=== PATIENT | male | born 1985 | race Caucasian/White ===

== ENCOUNTER 2016-11-26 10:47 | Emergency (ER) | payer SELFPAY ==
[2016-11-26] MEDS ORDERED: DEXAMETHASONE 4 MG TAB PO STA (11:43)
[2016-11-26] MEDS ORDERED: IPRATROPIUM-ALBUTEROL 3 ML NEB INHALATION STA (11:43)
--- NOTE | 2016-11-26 11:53 | ED ---
URI HPI - General Chief Complaint: Upper Respiratory Infection Stated Complaint: flu like symptoms Source: patient Mode of arrival: ambulatory Limitations: no limitations - History of Present Illness Initial Comments: 31-year-old male with no significant past medical history presented for evaluation of 2 days of sore throat, productive cough of green sputum, headache with coughing, and subjective fever. He states he was taking Sudafed but this provided no relief. Symptoms are worse at night and coughing seems to make the headache worse but nothing else is shown to be an exacerbating factor. He states that he works at [employer] and does not have insurance so he is not able to follow with primary care physician. He also states that he has had some bumps noted to the back of his throat and that his lymph nodes to his neck feel swollen. - Related Data Previous Rx's Medication Instructions Recorded Amoxicillin 500 mg PO Q12HR #20 cap 11/26/16 Allergies Allergy/AdvReac Type Severity Reaction Status Date / Time adhesive tape Allergy Unknown Verified 11/26/16 11:53 Review of Systems ROS Statement: Those systems with pertinent positive or pertinent negative responses have been documented in the HPI. ROS Other: All systems not noted in ROS Statement are negative. Constitutional: Reports: fever, chills. Denies: weakness, weight change Eyes: Denies: eye pain, eye discharge, vision change ENT: Denies: ear pain, throat pain, dental pain, hearing loss, epistaxis Respiratory: Reports: cough, dyspnea. Denies: wheezes, hemoptysis, stridor Cardiovascular: Denies: chest pain, palpitations, dyspnea on exertion, orthopnea Endocrine: Denies: fatigue, polydipsia, polyuria Gastrointestinal: Denies: abdominal pain, nausea, vomiting, diarrhea, constipation Genitourinary: Denies: urgency Musculoskeletal: Denies: as per HPI, back pain, joint swelling, arthralgia Skin: Denies: rash, change in color, pruritus Neurological: Reports: headache (With cough). Denies: confusion, abnormal gait Psychiatric: Denies: anxiety, depression Hematological/Lymphatic: Denies: easy bleeding, easy bruising Past Medical History Past Medical History: Asthma History of Any Multi-Drug Resistant Organisms: None Reported Past Surgical History: Orthopedic Surgery Additional Past Surgical History / Comment(s): sinus Past Psychological History: Anxiety, Bipolar, Depression Smoking Status: Current every day smoker Past Alcohol Use History: Occasional Past Drug Use History: None Reported General Exam Limitations: no limitations General appearance: alert, in no apparent distress Head exam: Present: atraumatic, normocephalic, normal inspection Eye exam: Present: normal appearance, PERRL, EOMI. Absent: scleral icterus, conjunctival injection, periorbital swelling ENT exam: Present: mucous membranes moist, TM's normal bilaterally, other ( Posterior oropharynx erythema with mild petechia) Neck exam: Present: tenderness, full ROM, lymphadenopathy Respiratory exam: Present: wheezes (Minimal bibasilar). Absent: respiratory distress, rhonchi, stridor, chest wall tenderness, accessory muscle use Cardiovascular Exam: Present: normal rhythm, tachycardia, normal heart sounds. Absent: systolic murmur, diastolic murmur GI/Abdominal exam: Present: soft, normal bowel sounds. Absent: distended, tenderness, guarding, rebound, rigid Rectal exam: Present: deferred Extremities exam: Present: normal inspection, full ROM, normal capillary refill. Absent: tenderness, pedal edema, joint swelling, calf tenderness Back exam: Present: normal inspection, full ROM Neurological exam: Present: alert, oriented X3, CN II-XII intact Psychiatric exam: Present: normal affect, normal mood Skin exam: Present: warm, dry, intact, normal color. Absent: rash Course Vital Signs 11/26/16 11/26/16 11/26/16 10:48 11:28 11:54 Temperature 99.0 F Pulse Rate 102 H 102 H Respiratory 20 16 16 Rate Blood Pressure 130/77 O2 Sat by Pulse 98 Oximetry 11/26/16 12:04 Temperature Pulse Rate 100 Respiratory Rate Blood Pressure O2 Sat by Pulse Oximetry Medical Decision Making - Medical Decision Making 31-year-old male presented for evaluation of URI symptoms of productive cough of green sputum, subjective fever, with associated sore throat , tender lymphadenopathy. Symptoms have been present for the last 2 days. On physical examination the patient does have minimal bibasilar wheezing, is coughing throughout the exam, and does have an erythematous posterior oropharynx with bilateral tender lymphadenopathy. Concern for URI versus pneumonia but given his sore throat with posterior oropharyngeal erythema will also consider strep. Pt has a centor score of 2 and will obtain rapid strep swab, cxr, and provide breathing treatment and steroids. There will not be an influenza swab taken as he is outside the treatment range and states that he would not be able to afford the treatment regardless. Rapid strep was negative and strep culture will be sent off. Chest x-ray shows no acute pulmonary process. She was reevaluated and stated he continues to have a mild headache. IM Toradol was provided. The patient was informed of results and that he would be discharged with instructions to follow-up with a primary care physician that would be provided to him. The patient states that he does not have insurance and that following up with her primary care physician will be likely. We'll provide an antibiotic that will cover for both the lymphangitis as well as strep throat as he is not likely to follow-up with her primary care physician. Symptoms likely represent an upper respiratory infection as there is no pneumonia seen on chest x-ray. He was further advised to return if his symptoms should worsen or persist. Didn't acknowledged an understanding of this information and he agreed with this plan of care. - Lab Data Lab Results 11/26/16 Range/Units 11:47 Group A Strep Rapid Negative (Negative) Disposition Clinical Impression: Upper respiratory infection, Lymphangitis Disposition: HOME SELF-CARE Condition: Stable Instructions: Upper Respiratory Infection (ED) Additional Instructions: Please use medication as discussed. Please follow up with family doctor if symptoms have not improved over the next two days. Please return to the emergency room if your symptoms increase or worsen or for any other concerns. Prescriptions: Amoxicillin 500 mg PO Q12HR #20 cap Time of Disposition: 13:08
--- NOTE | 2016-11-26 12:27 | XR ---
EXAMINATION TYPE: XR chest 2V DATE OF EXAM: 11/26/2016 12:17 PM COMPARISON: NONE HISTORY: Cough TECHNIQUE: Frontal and lateral views of the chest are obtained. FINDINGS: There is no focal air space opacity. No evidence for pnuemothorax.No pleural effusion. The cardiac silhouette size is within normal limits. The osseous structures are grossly intact. IMPRESSION: 1. No acute cardiopulmonary process.
[2016-11-26] MEDS ORDERED: KETOROLAC 30 MG/ML 1 ML VIAL IM STA ×2 (12:59→13:03)
[2016-11-26 13:07] VITALS: BP 128/62; PULSE 91; RESP 18; TEMP 99.1
== END 2016-11-26 13:27 | disposition home or self-care (01) ==
LOC: EC 10:47
DX: J06.9 Acute upper respiratory infection, unspecified (principal); I89.1 Lymphangitis; F17.200 Nicotine dependence, unspecified, uncomplicated; Z91.048 Other nonmedicinal substance allergy status
CPT/HCPCS: 96372 ×2; 99284 ×2; 94640; 87081; 87430; 71020; J8540; J1885

== ENCOUNTER 2017-01-22 16:55 | Emergency (ER) | payer OTHER ==
[2017-01-22] MEDS ORDERED: DICYCLOMINE 20 MG TAB PO STA (17:28)
[2017-01-22] MEDS ORDERED: SODIUM CHLORIDE 0.9% 1,000 ML IV STA (17:28)
[2017-01-22] MEDS ORDERED: SODIUM CHLORIDE 0.9% 500 ML IV STA (17:28)
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
[2017-01-22 18:02] LABS: Basophils % (A) 0 %; CH 31.4; CHCM 34.8; Eosinophils # (A) 0.1 k/uL (0-0.7); Eosinophils % (A) 1 %; HCT 44.6 % (39.0-53.0); HDW 2.35; HGB 15.3 gm/dL (13.0-17.5); Luc # (Auto) 0.07; Luc % (Auto) 1; Lymphocytes # (A) 1.1 k/uL (1.0-4.8); Lymphocytes % (A) 17 %; MCH 31.1 pg (25.0-35.0); MCHC 34.3 g/dL (31.0-37.0); MCV 90.6 fL (80.0-100.0); Mean Platelet Volume 6.8; Monocytes # (A) 0.3 k/uL (0-1.0); Monocytes % (A) 5 %; Neutrophils # (A) 4.9 k/uL (1.3-7.7); Neutrophils % (A) 75 %; RBC 4.92 m/uL (4.30-5.90); RDW 13.3 % (11.5-15.5); WBC 6.5 k/uL (3.8-10.6); WBC (Perox) 6.14
[2017-01-22 18:13] LABS: ALT 37 U/L (21-72); AST 23 U/L (17-59); Alkaline Phosphatase 78 U/L (38-126); Amylase 64 U/L (30-110); Anion Gap 6 mmol/L; Blood Urea Nitrogen 12 mg/dL (9-20); Calcium 8.8 mg/dL (8.4-10.2); Carbon Dioxide 26 mmol/L (22-30); Chloride 109 mmol/L (98-107); Glucose 95 mg/dL (74-99); Non-African American GFR(MDRD) >60 (>60 ml/min/1.73 sqM); Potassium 4.4 mmol/L (3.5-5.1); Sodium 141 mmol/L (137-145); Total Bilirubin 0.2 mg/dL (0.2-1.3); Total Protein 5.7 g/dL (6.3-8.2)
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
[2017-01-22 18:29] VITALS: BP 114/72; PULSE 69; RESP 15; TEMP 97.6
== END 2017-01-22 18:42 | disposition home or self-care (01) ==
LOC: EC 16:55
DX: A08.4 Viral intestinal infection, unspecified (principal); F17.200 Nicotine dependence, unspecified, uncomplicated; Z91.048 Other nonmedicinal substance allergy status
CPT/HCPCS: 36415; 74000; 80053; 82150; 83690; 85025; 96360; 99284

== ENCOUNTER 2017-04-30 19:02 | Emergency (ER) | payer OTHER ==
[2017-04-30 19:08] VITALS: TEMP 99
--- NOTE | 2017-04-30 19:22 | ED ---
General Adult HPI - General Chief complaint: Skin/Abscess/Foreign Body Stated complaint: FB IN THROAT Time Seen by Provider: 04/30/17 19:14 Source: patient, RN notes reviewed Mode of arrival: wheelchair Limitations: no limitations - History of Present Illness Initial comments: 32-year-old male presents with suspected steak in his esophagus. Patient reports a choking episode on a large piece of, then got lodged in his esophagus. He has had this happen in the past. He is complaining of intermittent squeezing substernal chest pain. He is unable to swallow secretions. He is having some vomiting with each attempt to swallow liquids. Patient denies abdominal pain. He has no significant past medical history. Denies any other ingestion. States it was "a large piece of steak" - Related Data Home Medications Medication Instructions Recorded Confirmed No Known Home Medications [No 04/30/17 04/30/17 Known Home Medications] Allergies Allergy/AdvReac Type Severity Reaction Status Date / Time adhesive tape Allergy Rash/Hives Verified 04/30/17 19:40 Review of Systems ROS Statement: Those systems with pertinent positive or pertinent negative responses have been documented in the HPI. ROS Other: All systems not noted in ROS Statement are negative. Past Medical History Past Medical History: Asthma History of Any Multi-Drug Resistant Organisms: None Reported Past Surgical History: Orthopedic Surgery Additional Past Surgical History / Comment(s): sinus Past Psychological History: Anxiety, Bipolar, Depression Smoking Status: Current every day smoker Past Alcohol Use History: Occasional Past Drug Use History: None Reported General Exam Limitations: no limitations General appearance: alert, in no apparent distress Head exam: Present: atraumatic, normocephalic Eye exam: Present: normal appearance, PERRL Neck exam: Present: normal inspection. Absent: tenderness, meningismus Respiratory exam: Present: normal lung sounds bilaterally. Absent: respiratory distress, stridor Cardiovascular Exam: Present: regular rate, normal rhythm GI/Abdominal exam: Present: soft. Absent: distended, tenderness Extremities exam: Present: normal inspection Back exam: Present: normal inspection, full ROM Neurological exam: Present: alert, oriented X3 Psychiatric exam: Present: normal affect, normal mood Skin exam: Present: warm, dry, intact. Absent: cyanosis, diaphoretic Course Vital Signs 04/30/17 04/30/17 19:05 21:44 Temperature 99.0 F Pulse Rate 70 69 Respiratory 18 16 Rate Blood Pressure 138/92 152/69 O2 Sat by Pulse 98 99 Oximetry Medical Decision Making - Medical Decision Making 32-year-old male with suspected steak caught in his esophagus. X-rays obtained , there is a foreign body in the proximal esophagus consistent with steak bolus. Patient was given Zofran and glucagon. He is unable to pass this steak on his own. I discussed the case with gastric neurology on-call Dr. Baeza, she recommends repeat glucagon dosing. He receives an additional 1 mg of glucagon. Patient is able to cough up a large piece of steak. He is feeling much better. He is able to tolerate small sips of water. Patient does have several episodes of vomiting, which she notes is ascitic taste inconsistent with gastric content. Repeat x-rays obtained, reduced food mass. There is no respiratory distress. Patient is tolerating liquids. He does not want stay in the emergency department. He will return with worsening symptoms. He will maintain a liquid diet for the next several days. No solid foods. He will return the emergency Department with worsening symptoms. He specifically told to return with chest pain, fever, or inability to tolerate liquids. He is given outpatient GI follow-up. Disposition Clinical Impression: Esophageal foreign body Disposition: HOME SELF-CARE Condition: Good Instructions: Esophageal Foreign Body (ED) Referrals: None,Stated [Primary Care Provider] - 1-2 days Laura Baeza MD [STAFF PHYSICIAN] - 1-2 days Time of Disposition: 22:03
[2017-04-30] MEDS ORDERED: ONDANSETRON 4 MG/2 ML VIAL IVP STA (19:50)
[2017-04-30] MEDS ORDERED: GLUCAGON 1 MG/ML VIAL IVP STA ×2 (19:50→21:13)
--- NOTE | 2017-04-30 20:01 | XR ---
EXAMINATION TYPE: Two-view soft tissue neck 2 views chest DATE OF EXAM: 04/30/2017 COMPARISON: 11/26/2016 HISTORY: 42-year-old male with pain, choked on a piece of steak FINDINGS: Neck: No subglottic airway narrowing. No retained radiopaque foreign body seen. No prevertebral soft tissue swelling. Normal epiglottis. The nasopharyngeal and oropharyngeal airway are patent. CHEST: The cardiomediastinal silhouette, aorta, and pulmonary vasculature are within normal limits. Mild per ibronchial cuffing is unchanged, possible chronic bronchitis/asthma. Otherwise, lungs and pleural spa evelio are clear. On the lateral view, there is some ovoid density projecting at the midsternal level. IMPRESSION: 1. Neck: Unremarkable soft tissues neck. 2. Chest: Chronic changes without acute cardiopulmonary process. 3. Chest: On the lateral view, there is a new ovoid density projecting behind the trachea in the uppe r third thorax. Summation shadow is most likely. However, given the patient's history, the possibilit y of material impacted in the esophagus can be correlated clinically.
[2017-04-30 21:46] VITALS: BP 152/69; PULSE 69; RESP 16
--- NOTE | 2017-04-30 21:50 | XR ---
EXAMINATION TYPE: XR chest 1V DATE OF EXAM: 04/30/2017 COMPARISON: NONE HISTORY: 32-year-old male reassess for foreign body, patient was able to bring up a piece of steak bu t still having excessive saliva. TECHNIQUE: Single frontal view of the chest is obtained. FINDINGS: On the lateral view, there is redemonstration of the retrotracheal density in the upper third thorax though it is smaller from prior exam. IMPRESSION: The density previously seen in the upper third thorax is smaller from prior exam. This could represen t summation artifact or some residual retained foreign body in the esophagus.
== END 2017-04-30 22:10 | disposition home or self-care (01) ==
LOC: EC 19:02
DX: T18.128A Food in esophagus causing other injury, initial encounter (principal); F17.200 Nicotine dependence, unspecified, uncomplicated; Z91.048 Other nonmedicinal substance allergy status
CPT/HCPCS: 99283 ×2; 96374 ×2; 96375 ×2; 96376 ×2; 70360; 71010; 71020; J1610; J2405

== ENCOUNTER 2017-06-06 18:29 | Emergency (ER) | payer OTHER ==
[2017-06-06] MEDS ORDERED: DICYCLOMINE 10 MG/ML 2 ML AMP IM STA (19:27)
[2017-06-06] MEDS ORDERED: ONDANSETRON 4 MG/2 ML VIAL IVP STA (19:27)
[2017-06-06] MEDS ORDERED: SODIUM CHLORIDE 0.9% 500 ML IV ONE (19:27)
[2017-06-06 20:02] LABS: Basophils % (A) 1 %; CH 30.1; CHCM 33.2; Eosinophils # (A) 0.1 k/uL (0-0.7); Eosinophils % (A) 2 %; HCT 45.5 % (39.0-53.0); HDW 2.28; HGB 14.9 gm/dL (13.0-17.5); Luc % (Auto) 2; Lymphocytes # (A) 2.7 k/uL (1.0-4.8); Lymphocytes % (A) 43 %; MCH 29.8 pg (25.0-35.0); MCHC 32.7 g/dL (31.0-37.0); MCV 91.2 fL (80.0-100.0); Mean Platelet Volume 7.5; Monocytes # (A) 0.3 k/uL (0-1.0); Monocytes % (A) 4 %; Neutrophils # (A) 3.1 k/uL (1.3-7.7); Neutrophils % (A) 49 %; RBC 4.99 m/uL (4.30-5.90); RDW 14.1 % (11.5-15.5); WBC 6.3 k/uL (3.8-10.6); WBC (Perox) 6.23
[2017-06-06 20:13] LABS: ALT 33 U/L (21-72); AST 22 U/L (17-59); Alkaline Phosphatase 87 U/L (38-126); Amylase 73 U/L (30-110); Anion Gap 10 mmol/L; Blood Urea Nitrogen 9 mg/dL (9-20); Calcium 9.5 mg/dL (8.4-10.2); Carbon Dioxide 24 mmol/L (22-30); Chloride 107 mmol/L (98-107); Glucose 87 mg/dL (74-99); Non-African American GFR(MDRD) >60 (>60 ml/min/1.73 sqM); Potassium 4.3 mmol/L (3.5-5.1); Sodium 141 mmol/L (137-145); Total Bilirubin 0.3 mg/dL (0.2-1.3); Total Protein 7.3 g/dL (6.3-8.2)
--- NOTE | 2017-06-06 20:22 | ED ---
Nausea/Vomiting/Diarrhea HPI - General Chief complaint: Nausea/Vomiting/Diarrhea Stated complaint: POSS FOOD POISONING Time Seen by Provider: 06/06/17 19:15 Source: patient Mode of arrival: ambulatory Limitations: no limitations - History of Present Illness Initial comments: 32-year-old male patient presents to the emergency department today with complaints of vomiting and diarrhea. Patient states that symptoms started around 11 AM. He states that he has vomited approximate 4 times. States that he has had generalized abdominal cramping with multiple episodes of diarrhea today. He is concerned for food poisoning. States that he ate at a local restaurant around 10 AM and symptoms started at 11. He denies any fever or chills with this. Denies any difficulty urinating. Denies any hematochezia, melena, or hematemesis. Patient denies any recent rash, shortness breath, chest pain, back pain, numbness, tingling, dizziness, weakness, hematuria, dysuria, urinary urgency, urinary frequency, headache, visual changes, or any other complaints. He denies any recent travel or sick contacts. - Related Data Previous Rx's Medication Instructions Recorded Ondansetron [Zofran ODT] 4 mg PO Q8HR PRN #10 tab 06/06/17 Allergies Allergy/AdvReac Type Severity Reaction Status Date / Time adhesive tape Allergy Rash/Hives Verified 06/06/17 19:16 Review of Systems ROS Statement: Those systems with pertinent positive or pertinent negative responses have been documented in the HPI. ROS Other: All systems not noted in ROS Statement are negative. Past Medical History Past Medical History: Asthma History of Any Multi-Drug Resistant Organisms: None Reported Past Surgical History: Orthopedic Surgery Additional Past Surgical History / Comment(s): sinus Past Psychological History: Anxiety, Bipolar, Depression Smoking Status: Current every day smoker Past Alcohol Use History: Occasional Past Drug Use History: None Reported General Exam Limitations: no limitations General appearance: alert, in no apparent distress, other (Social well-developed , well-nourished adult male patient in no acute distress. Vital signs upon presentation were temperature 98.1F, pulse 66, respirations 20, blood pressure 127/90, pulse ox 100% on room air.) Eye exam: Present: normal appearance, PERRL, EOMI. Absent: scleral icterus, conjunctival injection, periorbital swelling ENT exam: Present: normal exam, normal oropharynx, mucous membranes moist Respiratory exam: Present: normal lung sounds bilaterally. Absent: respiratory distress, wheezes, rales, rhonchi, stridor Cardiovascular Exam: Present: regular rate, normal rhythm, normal heart sounds. Absent: systolic murmur, diastolic murmur, rubs, gallop, clicks GI/Abdominal exam: Present: soft, normal bowel sounds. Absent: distended, tenderness, guarding, rebound, rigid Neurological exam: Present: alert, oriented X3, CN II-XII intact Psychiatric exam: Present: normal affect, normal mood Skin exam: Present: warm, dry, intact, normal color. Absent: rash Course Vital Signs 06/06/17 06/06/17 18:48 20:41 Temperature 98.1 F 97.8 F Pulse Rate 66 70 Respiratory 20 18 Rate Blood Pressure 127/90 114/74 O2 Sat by Pulse 100 99 Oximetry Medical Decision Making - Medical Decision Making 32-year-old male patient presented to the emergency department today for evaluation of vomiting and diarrhea. Physical examination was unremarkable. Labs reviewed and are unremarkable. Patient was rehydrated with normal saline, given nausea medication. Patient has not had any vomiting while in the department. States he is feeling better. He'll be discharged home with a prescription for Zofran. He is instructed to follow-up with his primary care physician for recheck in 1-2 days. He is instructed to return here immediately for any new, worsening, or concerning symptoms. He verbalizes understanding and agrees with this plan. - Lab Data Result diagrams: 06/06/17 19:52 06/06/17 19:52 Lab Results 06/06/17 06/06/17 Range/Units 19:52 19:52 WBC 6.3 (3.8-10.6) k/uL RBC 4.99 (4.30-5.90) m/uL Hgb 14.9 (13.0-17.5) gm/dL Hct 45.5 (39.0-53.0) % MCV 91.2 (80.0-100.0) fL MCH 29.8 (25.0-35.0) pg MCHC 32.7 (31.0-37.0) g/dL RDW 14.1 (11.5-15.5) % Plt Count 250 (150-450) k/uL Neutrophils % 49 % Lymphocytes % 43 % Monocytes % 4 % Eosinophils % 2 % Basophils % 1 % Neutrophils # 3.1 (1.3-7.7) k/uL Lymphocytes # 2.7 (1.0-4.8) k/uL Monocytes # 0.3 (0-1.0) k/uL Eosinophils # 0.1 (0-0.7) k/uL Basophils # 0.0 (0-0.2) k/uL Sodium 141 (137-145) mmol/L Potassium 4.3 (3.5-5.1) mmol/L Chloride 107 (98-107) mmol/L Carbon Dioxide 24 (22-30) mmol/L Anion Gap 10 mmol/L BUN 9 (9-20) mg/dL Creatinine 0.80 (0.66-1.25) mg/dL Est GFR (MDRD) Af Amer >60 (>60 ml/min/1.73 sqM) Est GFR (MDRD) Non-Af >60 (>60 ml/min/1.73 sqM) Glucose 87 (74-99) mg/dL Calcium 9.5 (8.4-10.2) mg/dL Total Bilirubin 0.3 (0.2-1.3) mg/dL AST 22 (17-59) U/L ALT 33 (21-72) U/L Alkaline Phosphatase 87 (38-126) U/L Total Protein 7.3 (6.3-8.2) g/dL Albumin 4.4 (3.5-5.0) g/dL Amylase 73 (30-110) U/L Lipase 116 (23-300) U/L Disposition Clinical Impression: Vomiting and diarrhea Disposition: HOME SELF-CARE Condition: Good Instructions: Acute Nausea and Vomiting (ED), Acute Diarrhea (ED) Additional Instructions: Increase fluids. Take medications as directed. Follow-up with your primary care physician for recheck in 1-2 days. Return here immediately for any new, worsening, or concerning symptoms. Prescriptions: Ondansetron [Zofran ODT] 4 mg PO Q8HR PRN #10 tab PRN Reason: Nausea Referrals: None,Stated [Primary Care Provider] - 1-2 days Time of Disposition: 20:39
[2017-06-06 20:43] VITALS: BP 114/74; PULSE 70; RESP 18
[2017-06-06 20:45] VITALS: TEMP 97.8
== END 2017-06-06 20:53 | disposition home or self-care (01) ==
LOC: EC 18:29
DX: R11.2 Nausea with vomiting, unspecified (principal); R19.7 Diarrhea, unspecified; R10.84 Generalized abdominal pain; F17.200 Nicotine dependence, unspecified, uncomplicated; Z91.048 Other nonmedicinal substance allergy status
CPT/HCPCS: 99284; 96374; 96361; 96372; 36415; 80053; 82150; 83690; 85025; J0500; J2405

== ENCOUNTER 2018-03-09 18:15 | Emergency (ER) | payer OTHER ==
[2018-03-09 18:22] VITALS: RESP 18
[2018-03-09] MEDS ORDERED: KETOROLAC 30 MG/ML 1 ML VIAL IVP STA (18:32)
[2018-03-09] MEDS ORDERED: methylPREDNISolone SOD SUCCI 125 MG/2 ML VIAL IV STA (18:32)
[2018-03-09] MEDS ORDERED: ORPHENADRINE 30 MG/ML 2 ML VIAL IVP STA (18:32)
--- NOTE | 2018-03-09 18:56 | ED ---
Back Pain HPI - General Chief Complaint: Back Pain/Injury Stated Complaint: back pain Time Seen by Provider: 03/09/18 18:20 Source: patient, EMS, RN notes reviewed, old records reviewed Limitations: physical limitation - History of Present Illness Initial Comments: This is a 32-year-old male presents emergency department today with onset of back pain and he was at work. Patient ports that he woke up this morning with an episode of back pain. It seems to worse with certain movements. Patient states that today he was pushing a eliot with meat and he twisted his back causing severe sharp pain. He arrives here via EMS because he was unable to get up from the floor. Patient reports that he has had no saddle anesthesias. He denies any urinary symptoms including hematuria or urinary frequency. - Related Data Previous Rx's Medication Instructions Recorded Cyclobenzaprine [Flexeril] 10 mg PO TID #12 tab 03/09/18 Ketorolac [Toradol] 10 mg PO Q6HR #12 tab 03/09/18 traMADol HCL [Ultram] 50 mg PO Q6HR PRN 3 Days #12 tab 03/09/18 Allergies Allergy/AdvReac Type Severity Reaction Status Date / Time adhesive tape Allergy Rash/Hives Verified 03/09/18 18:24 Review of Systems ROS Statement: Those systems with pertinent positive or pertinent negative responses have been documented in the HPI. ROS Other: All systems not noted in ROS Statement are negative. Past Medical History Past Medical History: Asthma History of Any Multi-Drug Resistant Organisms: None Reported Past Surgical History: Orthopedic Surgery Additional Past Surgical History / Comment(s): sinus Past Psychological History: Anxiety, Bipolar, Depression Smoking Status: Current every day smoker Past Alcohol Use History: Occasional Past Drug Use History: Marijuana General Exam - General Exam Comments Initial Comments: 42-year-old male. Alert and oriented. No distress. Limitations: physical limitation General appearance: alert, in no apparent distress Head exam: Present: atraumatic, normocephalic, normal inspection Eye exam: Present: normal appearance, PERRL, EOMI. Absent: scleral icterus, conjunctival injection, periorbital swelling ENT exam: Present: normal exam, mucous membranes moist Neck exam: Present: normal inspection Respiratory exam: Present: normal lung sounds bilaterally. Absent: respiratory distress, wheezes, rales, rhonchi, stridor Cardiovascular Exam: Present: regular rate, normal rhythm, normal heart sounds. Absent: systolic murmur, diastolic murmur, rubs, gallop, clicks GI/Abdominal exam: Present: soft Extremities exam: Present: normal inspection, full ROM, normal capillary refill. Absent: tenderness, pedal edema, joint swelling, calf tenderness Back exam: Present: normal inspection, muscle spasm, paraspinal tenderness ( Patient has left-sided mid thoracic paraspinal tenderness and muscle spasm.) Neurological exam: Present: alert, oriented X3, CN II-XII intact Psychiatric exam: Present: normal affect, normal mood Skin exam: Present: warm, dry, intact, normal color. Absent: rash Course Vital Signs 03/09/18 18:17 Temperature 97.8 F Pulse Rate 76 Respiratory 18 Rate Blood Pressure 128/70 O2 Sat by Pulse 98 Oximetry Medical Decision Making - Medical Decision Making 32-year-old male presents emergency room today when she went back pain. Patient reports that is worse with movement. This time thoracic spine x-rays negative for any acute process. He is tender over the thoracic spine and the paraspinal muscles. At this time Patient is treated with Toradol and Norflex and Solu-Medrol. He does report some relief of the pain. He does state it seems to be worse with certain movements. The same Patient UA is negative for any acute process. The we'll discharge the Patient must boxer steroids and short course of pain medication. Discussed PCP follow-up. Patient agrees treatment plan will comply. Return parameters were discussed. - Radiology Data Radiology results: report reviewed Chest x-ray and thoracic spine x-ray negative for any acute process. Disposition Clinical Impression: Thoracic back pain Disposition: HOME SELF-CARE Condition: Good Instructions: Muscle Spasm (ED) Additional Instructions: Patient advised to follow-up with primary care physician. Take the pain medication instructions as prescribed. Heat and ice to the back. Return to the emergency department if any alarming signs occur. Prescriptions: Cyclobenzaprine [Flexeril] 10 mg PO TID #12 tab Ketorolac [Toradol] 10 mg PO Q6HR #12 tab traMADol HCL [Ultram] 50 mg PO Q6HR PRN 3 Days #12 tab PRN Reason: Pain Is patient prescribed a controlled substance at d/c from ED?: No Referrals: Joi Amaya MD [Primary Care Provider] - 1-2 days Time of Disposition: 20:02
--- NOTE | 2018-03-09 19:57 | XR ---
PROCEDURE: XR thoracic spine 3V DATE AND TIME: 03/09/2018 7:34 PM CLINICAL INDICATION: [facility] Pain TECHNIQUE: Department protocol. COMPARISON: None FINDINGS: There is no fracture or malalignment. The soft tissues are unremarkable. IMPRESSION: NO ACUTE PROCESS.
[2018-03-09 20:24] LABS: Amorphous Sediment,Urine Rare /hpf; Appearance,Urine Clear (Clear); Bilirubin,Urine Negative (Negative); Blood,Urine Small (Negative); Color,Urine Yellow; Glucose,Urine (UA) Negative (Negative); Hyaline Casts,Urine 4 /lpf (0-2); Ketones,Urine Negative (Negative); Leukocyte Esterase,Urine Negative (Negative); Mucus,Urine Rare /hpf; Nitrite,Urine Negative (Negative); PH, Urine 5.5 (5.0-8.0); Protein,Urine Negative (Negative); RBC,Urine 5 /hpf (0-5); Specific Gravity,Urine 1.019 (1.001-1.035); Urobilinogen,Urine <2.0 mg/dL (<2.0); WBC,Urine 1 /hpf (0-5)
[2018-03-09 20:43] VITALS: BP 116/53; PULSE 60; TEMP 97.7
== END 2018-03-09 20:43 | disposition home or self-care (01) ==
LOC: EC 18:15
DX: M54.6 Pain in thoracic spine (principal); F17.200 Nicotine dependence, unspecified, uncomplicated; Z91.048 Other nonmedicinal substance allergy status
CPT/HCPCS: 81001; 72070; 99284; 96374; 96375 ×2; J2360; J2930; J1885

== ENCOUNTER → 2018-07-19 | Outpatient (CLI) | payer OTHER ==
--- NOTE | 2018-07-19 22:38 | MR ---
EXAMINATION TYPE: MR lumbar spine wo con DATE OF EXAM: 07/19/2018 COMPARISON: Lumbar spine x-ray May 12, 2015. HISTORY: Low back pain per order. TECHNIQUE: Multiplanar, multisequence imaging of the lumbar spine is performed without IV contrast. FINDINGS: Sagittal images of the lumbar spine show vertebral body heights and alignment to appear sat isfactory. There is disc desiccation at L4-L5 and L5-S1 levels. Disc space heights are maintained. Th ere is increased signal posteriorly consistent with annular tear L5-S1 level. No large posterior disc herniations are seen on sagittal images. The conus medullaris is normal in position and signal endin g T12-L1 disc space level. The bone marrow signal intensity is within normal limits. No significant spurring is seen. Axial images show the T12-L1, L1-L2, L2-L3, and L3-L4 levels all to appear within normal limits. Axial images at the L4-L5 level show mild broad disc bulge minimally effacing the anterior thecal sac with mild facet degenerative changes bilaterally causing mild to minimal bilateral anterior inferior neural foraminal narrowing. Axial images at the L5-S1 level shows central disc protrusion minimally effacing the anterior thecal sac and mild facet degenerative changes bilaterally. Bilateral neural foramina are patent. IMPRESSION: Some mild degenerative changes in the lower lumbar spine as detailed above.
--- NOTE | 2018-07-19 22:41 | MR ---
EXAMINATION TYPE: MR hip RT wo con DATE OF EXAM: 07/19/2018 COMPARISON: None HISTORY: Right Hip Pain, Recent injury to Rt Hip Standard multiplanar, multisequence MRI departmental protocol Multiplanar, multisequence images of the pelvis focusing on right hip were acquired. FINDINGS: Bone marrow signal intensity throughout the pelvis including right hip is maintained. No johnston spicious edema seen. No suspicious serpiginous low T1 signal is noted. Hip joints are symmetric and felt within normal limits. There are symmetric small presumed physiologi c hip joint effusions. Femoral head shapes are maintained bilaterally. No significant spurring is see n. The labrum appears grossly intact given limitations of nonarthrogram study. Increased fluid signal se en at level of greater trochanters bilaterally more prominent on the right. No suspicious groin herni as or adenopathy is seen. Muscle bulk bilateral thighs is symmetric and felt within normal limits. Visualized bowel shows no suspicious dilatation. Visualized bladder is within normal limits. Visualiz ed prostate is grossly unremarkable. No concerning pelvic fluid collection is seen. IMPRESSION: Mild to moderate right greater than left greater trochanteric bursitis.
== END | disposition home or self-care (01) ==
LOC: RADMRIMAIN 14:48
PROVIDERS: ATTEND Internal Medicine
DX: M47.816 Spondylosis without myelopathy or radiculopathy, lumbar region (principal); M70.62 Trochanteric bursitis, left hip; M70.61 Trochanteric bursitis, right hip
CPT/HCPCS: 72148

== ENCOUNTER 2018-09-16 00:24 | Emergency (ER) | payer OTHER ==
[2018-09-16 00:28] VITALS: BP 142/90; PULSE 91; RESP 16; TEMP 98.4
[2018-09-16] MEDS ORDERED: LIDOCAINE 1% INJ 10MG/ML (20 ML MDV) SQ ONE (01:43)
[2018-09-16] MEDS ORDERED: DIPH,PERTUS(ACELL)TETVAC-LF 0.5 ML VIAL IM ONE (02:37)
--- NOTE | 2018-09-16 02:57 | ED ---
General Adult HPI - General Chief complaint: Wound/Laceration Stated complaint: Hand Laceration Time Seen by Provider: 09/16/18 01:41 Source: patient, RN notes reviewed Mode of arrival: ambulatory Limitations: no limitations - History of Present Illness Initial comments: 33-year-old male presents to the emergency department for a chief of laceration of the right hand times one hour. Patient states he went to grab a kitchen knife off of the counter at his place of work when he accidentally cut his right hand. Patient is not sure what he cut this on. Patient denies any difficulty moving the fingers. Denies any other injuries. Patient states he has not up-to-date on tetanus. Patient has no other complaints at this time including shortness of breath, chest pain, abdominal pain, nausea or vomiting, headache, or visual changes. - Related Data Previous Rx's Medication Instructions Recorded Cyclobenzaprine [Flexeril] 10 mg PO TID #12 tab 03/09/18 Ketorolac [Toradol] 10 mg PO Q6HR #12 tab 03/09/18 traMADol HCL [Ultram] 50 mg PO Q6HR PRN 3 Days #12 tab 03/09/18 Allergies Allergy/AdvReac Type Severity Reaction Status Date / Time adhesive tape Allergy Rash/Hives Verified 09/16/18 00:28 Review of Systems ROS Statement: Those systems with pertinent positive or pertinent negative responses have been documented in the HPI. ROS Other: All systems not noted in ROS Statement are negative. Past Medical History Past Medical History: Asthma History of Any Multi-Drug Resistant Organisms: None Reported Past Surgical History: Orthopedic Surgery Additional Past Surgical History / Comment(s): sinus Past Psychological History: Anxiety, Bipolar, Depression Smoking Status: Current every day smoker Past Alcohol Use History: Occasional Past Drug Use History: Marijuana General Exam Limitations: no limitations General appearance: alert, in no apparent distress Head exam: Present: atraumatic, normocephalic, normal inspection Eye exam: Present: normal appearance, PERRL, EOMI. Absent: scleral icterus, conjunctival injection, periorbital swelling ENT exam: Present: normal exam, mucous membranes moist Neck exam: Present: normal inspection, full ROM. Absent: tenderness, meningismus, lymphadenopathy Respiratory exam: Present: normal lung sounds bilaterally. Absent: respiratory distress, wheezes, rales, rhonchi, stridor Cardiovascular Exam: Present: regular rate, normal rhythm, normal heart sounds. Absent: systolic murmur, diastolic murmur, rubs, gallop, clicks GI/Abdominal exam: Present: soft, normal bowel sounds. Absent: distended, tenderness, guarding, rebound, rigid Extremities exam: Present: full ROM (Full range of motion of right hand including all digits in the right hand), normal capillary refill (Capillary refill less than 2 seconds, radial pulse 2+ the right upper extremity), other ( Patient has a 2 cm laceration noted to the palmar aspect of the right hand over the fifth metacarpal. This is relatively superficial. No foreign bodies noted) Course Vital Signs 09/16/18 00:25 Temperature 98.4 F Pulse Rate 91 Respiratory 16 Rate Blood Pressure 142/90 O2 Sat by Pulse 96 Oximetry Procedures - Laceration Laceration #1 Consent Obtained: verbal consent Indication: laceration Site: hand Size (cm): 2 Description: linear Depth: simple, single layer Anesthetic Used: lidocaine 1% Anesthesia Technique: local infiltration Amount (mls): 2 Pre-repair: wound explored, irrigated extensively (Irrigated extensively with 2 L of sterile water and followed by pressure irrigation with saline) Type of Sutures: other (Ethilon) Size of Sutures: 5-0 Number of Sutures: 4 Technique: simple, interrupted Patient Tolerated Procedure: well, no complications Medical Decision Making - Medical Decision Making 33-year-old male presents to the emergency department for a chief complaint of laceration to the right palm over the fifth metacarpal area. Neurovascular intact. Full range of motion. Patient has a relatively superficial laceration. No foreign bodies noted. This was cleaned thoroughly. 4 sutures were applied. No complications Tetanus given. Educated them return precautions including those for infection. Educated to return in 7-10 days for suture removal AND answered. Disposition Clinical Impression: Laceration Disposition: HOME SELF-CARE Condition: Good Instructions (If sedation given, give patient instructions): Laceration (ED), Care For Your Stitches (ED) Additional Instructions: Please monitor for signs of infection such as spreading or streaking redness and return if these occur. Keep area clean. Follow-up with primary care in 1- 2 days for recheck. Return here to have sutures removed in 7-10 days. Return to the emergency department earlier if you have any worsening symptoms. Is patient prescribed a controlled substance at d/c from ED?: No Referrals: Joi Amaya MD [Primary Care Provider] - 1-2 days Time of Disposition: 02:56
== END 2018-09-16 03:10 | disposition home or self-care (01) ==
LOC: EC 00:24
DX: S61.411A Laceration without foreign body of right hand, initial encounter (principal); Z23 Encounter for immunization; F17.200 Nicotine dependence, unspecified, uncomplicated; Z91.048 Other nonmedicinal substance allergy status; W26.0XXA Contact with knife, initial encounter; Y92.000 Kitchen of unspecified non-institutional (private) residence as the place of occurrence of the external cause
CPT/HCPCS: 90715; 99282; 90471; 12001; J2001

== ENCOUNTER 2018-10-26 10:45 | Emergency (ER) | payer OTHER ==
[2018-10-26 10:59] VITALS: BP 120/76; PULSE 89; RESP 20; TEMP 97.6
[2018-10-26] MEDS ORDERED: LIDOCAINE 1% INJ 10MG/ML (20 ML MDV) SQ ONE (11:32)
--- NOTE | 2018-10-26 11:35 | ED ---
Wound/Laceration HPI - General Chief Complaint: Wound/Laceration Stated Complaint: finger lac Time Seen by Provider: 10/26/18 11:27 Source: patient, RN notes reviewed Mode of arrival: ambulatory Limitations: no limitations - History of Present Illness Initial Comments: 33-year-old male presents emergency Department chief complaint of laceration to his left hand index. Patient states that he was cutting tomatoes and states it slipped cutting his finger. Patient's tetanus up-to-date within last year. Patient denies any paresthesias. Patient has full range of motion. Patient states he did cover the wound which the bleeding has subsided. - Related Data Previous Rx's Medication Instructions Recorded Cyclobenzaprine [Flexeril] 10 mg PO TID #12 tab 03/09/18 Ketorolac [Toradol] 10 mg PO Q6HR #12 tab 03/09/18 traMADol HCL [Ultram] 50 mg PO Q6HR PRN 3 Days #12 tab 03/09/18 Allergies Allergy/AdvReac Type Severity Reaction Status Date / Time adhesive tape Allergy Rash/Hives Verified 10/26/18 10:58 Review of Systems ROS Statement: Those systems with pertinent positive or pertinent negative responses have been documented in the HPI. ROS Other: All systems not noted in ROS Statement are negative. Past Medical History Past Medical History: Asthma History of Any Multi-Drug Resistant Organisms: None Reported Past Surgical History: Orthopedic Surgery Additional Past Surgical History / Comment(s): sinus Past Psychological History: Anxiety, Bipolar, Depression Smoking Status: Current every day smoker Past Alcohol Use History: Occasional Past Drug Use History: Marijuana General Exam Limitations: no limitations General appearance: alert, in no apparent distress Head exam: Present: atraumatic, normocephalic, normal inspection Neck exam: Present: normal inspection. Absent: tenderness, meningismus, lymphadenopathy Respiratory exam: Present: normal lung sounds bilaterally. Absent: respiratory distress, wheezes, rales, rhonchi, stridor Cardiovascular Exam: Present: regular rate, normal rhythm, normal heart sounds. Absent: systolic murmur, diastolic murmur, rubs, gallop, clicks Extremities exam: Present: other (Left hand index finger there is 1 cm- laceration noted distal phalanx with no active bleeding, no nail involvement no tendon involvement) Skin exam: Present: warm, dry, intact, normal color. Absent: rash Course Vital Signs 10/26/18 10:56 Temperature 97.6 F Pulse Rate 89 Respiratory 20 Rate Blood Pressure 120/76 O2 Sat by Pulse 99 Oximetry Medical Decision Making - Medical Decision Making 33-year-old male presented from for laceration to his left index finger. This was closed using Ethilon sutures. Patient tolerated well tetanus is up-to-date. Disposition Clinical Impression: Finger laceration Disposition: HOME SELF-CARE Condition: Stable Instructions (If sedation given, give patient instructions): Care For Your Stitches (ED), Finger Laceration (ED) Additional Instructions: Have sutures removed in 10 days. Please return to the Emergency Department if symptoms worsen or any other concerns. Is patient prescribed a controlled substance at d/c from ED?: No Referrals: Joi Amaya MD [Primary Care Provider] - 1-2 days Time of Disposition: 11:54
== END 2018-10-26 12:10 | disposition home or self-care (01) ==
LOC: EC 10:45
DX: S61.211A Laceration without foreign body of left index finger without damage to nail, initial encounter (principal); F17.200 Nicotine dependence, unspecified, uncomplicated; Z91.048 Other nonmedicinal substance allergy status; W26.8XXA Contact with other sharp object(s), not elsewhere classified, initial encounter; Y93.89 Activity, other specified; Y99.0 Civilian activity done for income or pay
CPT/HCPCS: 99282; 12001; J2001

== ENCOUNTER 2018-11-18 17:28 | Emergency (ER) | payer OTHER ==
[2018-11-18 17:31] VITALS: BP 129/86; TEMP 98.3
[2018-11-18] MEDS ORDERED: methylPREDNISolone SOD SUCCI 125 MG/2 ML VIAL IM ONE (18:28)
[2018-11-18] MEDS ORDERED: cefTRIAXone 1,000 MG VIAL (IM USE) IM STA (18:28)
[2018-11-18] MEDS ORDERED: IPRATROPIUM-ALBUTEROL 3 ML NEB INHALATION STA (18:28)
--- NOTE | 2018-11-18 18:39 | ED ---
URI HPI - General Chief Complaint: Upper Respiratory Infection Stated Complaint: Congestion/chest pressure Time Seen by Provider: 11/18/18 17:45 Source: patient, RN notes reviewed, old records reviewed Mode of arrival: ambulatory Limitations: no limitations - History of Present Illness Initial Comments: 33-year-old male presents today for evaluation for cough, congestion for the past week. Patient reports that it seems like his chest and cough is worse at night. Patient states that he is a smoker. Patient reports history of sick contacts with pneumonia. Patient states that he's had fevers worsening at night. Patient denies any abdominal pain nausea or vomiting. - Related Data Previous Rx's Medication Instructions Recorded Azithromycin [Zithromax Z-pack] 250 mg PO DIRECTED #6 tab 11/18/18 methylPREDNISolone Dose Pack 4 mg PO DIRECTED #21 package 11/18/18 [Medrol Dose Pack] Allergies Allergy/AdvReac Type Severity Reaction Status Date / Time adhesive tape Allergy Rash/Hives Verified 11/18/18 17:31 Review of Systems ROS Statement: Those systems with pertinent positive or pertinent negative responses have been documented in the HPI. ROS Other: All systems not noted in ROS Statement are negative. Past Medical History Past Medical History: Asthma History of Any Multi-Drug Resistant Organisms: None Reported Past Surgical History: Orthopedic Surgery Additional Past Surgical History / Comment(s): sinus Past Psychological History: Anxiety, Bipolar, Depression Smoking Status: Current every day smoker Past Alcohol Use History: Occasional Past Drug Use History: Marijuana General Exam - General Exam Comments Initial Comments: 33-year-old male. Alert and oriented 3. Patient appears in no significant distress. Limitations: no limitations Head exam: Present: atraumatic, normocephalic, normal inspection Eye exam: Present: normal appearance, PERRL, EOMI. Absent: scleral icterus, conjunctival injection, periorbital swelling ENT exam: Present: normal exam, mucous membranes moist Neck exam: Present: normal inspection. Absent: tenderness, meningismus, lymphadenopathy Respiratory exam: Present: wheezes (Wheezing bilaterally.). Absent: normal lung sounds bilaterally, respiratory distress, rales, rhonchi, stridor Cardiovascular Exam: Present: regular rate, normal rhythm, normal heart sounds. Absent: systolic murmur, diastolic murmur, rubs, gallop, clicks GI/Abdominal exam: Present: soft, normal bowel sounds. Absent: distended, tenderness, guarding, rebound, rigid Extremities exam: Present: normal inspection, full ROM, normal capillary refill. Absent: tenderness, pedal edema, joint swelling, calf tenderness Back exam: Present: normal inspection Neurological exam: Present: alert, oriented X3, CN II-XII intact Psychiatric exam: Present: normal affect Skin exam: Present: warm, dry, intact, normal color. Absent: rash Course Vital Signs 11/18/18 11/18/18 11/18/18 17:29 17:59 18:37 Temperature 98.3 F Pulse Rate 80 77 Respiratory 18 18 20 Rate Blood Pressure 129/86 O2 Sat by Pulse 98 Oximetry 11/18/18 18:45 Temperature Pulse Rate 78 Respiratory 18 Rate Blood Pressure O2 Sat by Pulse Oximetry Medical Decision Making - Medical Decision Making Patient is a 33-year-old male process presented with cough congestion runny nose. He has wheezing on exam. Patient was given DuoNeb treatment and Solu- Medrol and Rocephin. At this time patient's chest is a was reviewed to be normal. Clinically Patient has bronchitis. We'll discharge the Patient with steroids and azithromycin. Discussed using inhaler and follow-up with PCP. - Radiology Data Radiology results: report reviewed Normal chest x-ray. Disposition Clinical Impression: Bronchitis Disposition: HOME SELF-CARE Condition: Good Instructions (If sedation given, give patient instructions): Acute Bronchitis (ED) Additional Instructions: Advised to alternate Motrin Tylenol. Take the medication as prescribed. Return to emergency department if any alarming signs or symptoms occur. Prescriptions: methylPREDNISolone Dose Pack [Medrol Dose Pack] 4 mg PO DIRECTED #21 package Azithromycin [Zithromax Z-pack] 250 mg PO DIRECTED #6 tab Is patient prescribed a controlled substance at d/c from ED?: No Referrals: Joi Amaya MD [Primary Care Provider] - 1-2 days Time of Disposition: 19:22
[2018-11-18 18:45] VITALS: PULSE 78; RESP 18
--- NOTE | 2018-11-18 19:14 | XR ---
EXAMINATION TYPE: XR chest 2V DATE OF EXAM: 11/18/2018 COMPARISON: 04/30/2017 HISTORY: Cough TECHNIQUE: Frontal and lateral views of the chest are obtained. FINDINGS: Heart and mediastinum are normal. Lungs are clear. Diaphragm is normal. Bony thorax appear s normal. IMPRESSION: Normal chest. No change.
== END 2018-11-18 19:31 | disposition home or self-care (01) ==
LOC: EC 17:28
DX: J40 Bronchitis, not specified as acute or chronic (principal); F17.200 Nicotine dependence, unspecified, uncomplicated; Z87.09 Personal history of other diseases of the respiratory system; Z91.048 Other nonmedicinal substance allergy status
CPT/HCPCS: 94640; 71046; 99285; 96372 ×2; J2930; J0696

== ENCOUNTER 2019-09-06 20:19 | Emergency (ER) | payer OTHER ==
[2019-09-06] MEDS ORDERED: SODIUM CHLORIDE 0.9% 1,000 ML IV STA (21:25)
[2019-09-06] MEDS ORDERED: PANTOPRAZOLE 40 MG/10 ML VIAL IVP STA (21:25)
[2019-09-06] MEDS ORDERED: ONDANSETRON 4 MG/2 ML VIAL IVP STA (21:25)
--- NOTE | 2019-09-06 21:32 | ED ---
Abdominal Pain HPI - General Chief Complaint: Abdominal Pain Stated Complaint: headache/abd pain Time Seen by Provider: 09/06/19 20:35 Source: patient Mode of arrival: ambulatory Limitations: no limitations - History of Present Illness Initial Comments: The patient is a 34-year-old male with no past medical history presents to emergency room with reported right upper quadrant abdominal pain. He states the symptoms have been present for the past several days. He describes it as a cramping epigastric pain which is worse after he eats fatty foods. He states that he had several episodes of nausea with vomiting 2 days ago. It was non- ileus, nonbloody vomiting. Also reports to non-melanotic stools. No hematochezia. Symptoms improved. Today he went to work and ate some cheese sticks. States that soon afterwards he was doubled over in pain. He felt as if he was given a vomit. Record fevers or chills. No recent travel or antibiotic use. Denies any sick contacts similar symptoms. No previous abdominal surgeries. Diarrhea has improved and is now having normal bowel movements. Denies any changes in his urination. No concerns for sexually transmitted infections. No ripping or tearing sensation to his back. He denies any chest pain or shortness of breath. No history of cardiac disease. There are no other alleviating, precipitating or modifying factors - Related Data Previous Rx's Medication Instructions Recorded Albuterol Inhaler [Ventolin Hfa 1 - 2 puff INHALATION RT-Q6H PRN 11/18/18 Inhaler] #1 inhaler Azithromycin [Zithromax Z-pack] 250 mg PO DIRECTED #6 tab 11/18/18 methylPREDNISolone Dose Pack 4 mg PO DIRECTED #21 package 11/18/18 [Medrol Dose Pack] Ondansetron Odt [Zofran Odt] 4 mg PO Q8HR PRN #15 tab 09/06/19 Allergies Allergy/AdvReac Type Severity Reaction Status Date / Time adhesive tape Allergy Rash/Hives Verified 09/06/19 20:35 Review of Systems ROS Statement: Those systems with pertinent positive or pertinent negative responses have been documented in the HPI. ROS Other: All systems not noted in ROS Statement are negative. Past Medical History Past Medical History: Asthma History of Any Multi-Drug Resistant Organisms: None Reported Past Surgical History: Orthopedic Surgery Additional Past Surgical History / Comment(s): sinus Past Psychological History: Anxiety, Bipolar, Depression Smoking Status: Current every day smoker Past Alcohol Use History: Occasional Past Drug Use History: Marijuana General Exam Limitations: no limitations General appearance: alert, in no apparent distress Head exam: Present: atraumatic, normocephalic, normal inspection Eye exam: Present: normal appearance, PERRL, EOMI. Absent: scleral icterus, conjunctival injection, periorbital swelling ENT exam: Present: normal exam, mucous membranes moist Neck exam: Present: normal inspection. Absent: tenderness, meningismus, lymphadenopathy Respiratory exam: Present: normal lung sounds bilaterally. Absent: respiratory distress, wheezes, rales, rhonchi, stridor Cardiovascular Exam: Present: regular rate, normal rhythm, normal heart sounds. Absent: systolic murmur, diastolic murmur, rubs, gallop, clicks GI/Abdominal exam: Present: soft, tenderness (RUQ), normal bowel sounds. Absent: distended, guarding, rebound, rigid Extremities exam: Present: normal inspection, full ROM, normal capillary refill. Absent: tenderness, pedal edema, joint swelling, calf tenderness Back exam: Present: normal inspection Neurological exam: Present: alert, oriented X3, CN II-XII intact Psychiatric exam: Present: normal affect, normal mood Skin exam: Present: warm, dry, intact, normal color. Absent: rash Course Vital Signs 09/06/19 09/06/19 09/06/19 20:33 22:35 23:00 Temperature 98.1 F 98.9 F Pulse Rate 99 60 65 Respiratory 20 20 18 Rate Blood Pressure 120/81 115/77 118/71 O2 Sat by Pulse 99 98 100 Oximetry Medical Decision Making - Medical Decision Making Upon arrival patient was placed into room 20. A thorough history and physical exam was performed. The patient is offered something for pain control however he refuses. He is offered Zofran which she does accept. Peripheral IV was established he is given 4 mg of Zofran as well as a liter bolus of normal saline. Laboratory studies were conducted which are unremarkable. Urinalysis shows trace blood with 14 red blood cells. Ultrasound of the gallbladder demonstrates no acute process. No gallstones or dilated ducts. I reevaluated the patient. He continues to have some pain. I did offer him pain medications however he refused. I did recommend a CT as I do not have the etiology of the patient's symptoms. The patient did refuse CT. He is of sound mind and capable of making his own decisions. He is lucid. And understands the risks of not proceeding with additional studies. This time the patient will be discharged home. I recommended that he follow-up with his primary care doctor for further evaluation. I did recommend a HIDA scan. The patient does not have a primary care physician. I did refer him to the [facility]. I also gave himself information for Dr. Kaur. If he has any new or worsening symptoms or has inability to proceed with medical treatment in the outpatient setting he can return to the emergency room. The patient was in agreement treatment plan and discharged home in stable condition - Lab Data Result diagrams: 09/06/19 21:50 09/06/19 21:50 Lab Results 09/06/19 09/06/19 09/06/19 Range/Units 21:50 21:50 21:50 WBC 7.7 (3.8-10.6) k/uL RBC 4.93 (4.30-5.90) m/uL Hgb 14.6 (13.0-17.5) gm/dL Hct 45.5 (39.0-53.0) % MCV 92.3 (80.0-100.0) fL MCH 29.5 (25.0-35.0) pg MCHC 32.0 (31.0-37.0) g/dL RDW 12.5 (11.5-15.5) % Plt Count 244 (150-450) k/uL Neutrophils % 55 % Lymphocytes % 36 % Monocytes % 4 % Eosinophils % 3 % Basophils % 0 % Neutrophils # 4.3 (1.3-7.7) k/uL Lymphocytes # 2.8 (1.0-4.8) k/uL Monocytes # 0.3 (0-1.0) k/uL Eosinophils # 0.2 (0-0.7) k/uL Basophils # 0.0 (0-0.2) k/uL Sodium 139 (137-145) mmol/L Potassium 4.2 (3.5-5.1) mmol/L Chloride 103 (98-107) mmol/L Carbon Dioxide 32 H (22-30) mmol/L Anion Gap 4 mmol/L BUN 17 (9-20) mg/dL Creatinine 0.91 (0.66-1.25) mg/dL Est GFR (CKD-EPI)AfAm >90 (>60 ml/min/1.73 sqM) Est GFR (CKD-EPI)NonAf >90 (>60 ml/min/1.73 sqM) Glucose 96 (74-99) mg/dL Plasma Lactic Acid Jitendra 1.3 (0.7-2.0) mmol/L Calcium 9.2 (8.4-10.2) mg/dL Total Bilirubin 0.3 (0.2-1.3) mg/dL AST 28 (17-59) U/L ALT 30 (4-49) U/L Alkaline Phosphatase 82 (38-126) U/L Total Protein 7.1 (6.3-8.2) g/dL Albumin 4.3 (3.5-5.0) g/dL Lipase 223 (23-300) U/L Urine Color Urine Appearance (Clear) Urine pH (5.0-8.0) Ur Specific Lithia (1.001-1.035) Urine Protein (Negative) Urine Glucose (UA) (Negative) Urine Ketones (Negative) Urine Blood (Negative) Urine Nitrite (Negative) Urine Bilirubin (Negative) Urine Urobilinogen (<2.0) mg/dL Ur Leukocyte Esterase (Negative) Urine RBC (0-5) /hpf Urine WBC (0-5) /hpf Urine Mucus (None) /hpf 09/06/19 Range/Units 23:00 WBC (3.8-10.6) k/uL RBC (4.30-5.90) m/uL Hgb (13.0-17.5) gm/dL Hct (39.0-53.0) % MCV (80.0-100.0) fL MCH (25.0-35.0) pg MCHC (31.0-37.0) g/dL RDW (11.5-15.5) % Plt Count (150-450) k/uL Neutrophils % % Lymphocytes % % Monocytes % % Eosinophils % % Basophils % % Neutrophils # (1.3-7.7) k/uL Lymphocytes # (1.0-4.8) k/uL Monocytes # (0-1.0) k/uL Eosinophils # (0-0.7) k/uL Basophils # (0-0.2) k/uL Sodium (137-145) mmol/L Potassium (3.5-5.1) mmol/L Chloride (98-107) mmol/L Carbon Dioxide (22-30) mmol/L Anion Gap mmol/L BUN (9-20) mg/dL Creatinine (0.66-1.25) mg/dL Est GFR (CKD-EPI)AfAm (>60 ml/min/1.73 sqM) Est GFR (CKD-EPI)NonAf (>60 ml/min/1.73 sqM) Glucose (74-99) mg/dL Plasma Lactic Acid Jitendra (0.7-2.0) mmol/L Calcium (8.4-10.2) mg/dL Total Bilirubin (0.2-1.3) mg/dL AST (17-59) U/L ALT (4-49) U/L Alkaline Phosphatase (38-126) U/L Total Protein (6.3-8.2) g/dL Albumin (3.5-5.0) g/dL Lipase (23-300) U/L Urine Color Yellow Urine Appearance Clear (Clear) Urine pH 6.5 (5.0-8.0) Ur Specific [place] 1.023 (1.001-1.035) Urine Protein Negative (Negative) Urine Glucose (UA) Negative (Negative) Urine Ketones Negative (Negative) Urine Blood Trace H (Negative) Urine Nitrite Negative (Negative) Urine Bilirubin Negative (Negative) Urine Urobilinogen 2.0 (<2.0) mg/dL Ur Leukocyte Esterase Negative (Negative) Urine RBC 14 H (0-5) /hpf Urine WBC 1 (0-5) /hpf Urine Mucus Rare H (None) /hpf - EKG Data EKG Comments: EKG demonstrates a sinus rhythm with a ventricular rate of 70. CA interval 132. QRS 96. QTC of 416. No acute ST segment elevations or depressions concerning for ischemic changes Disposition Clinical Impression: Epigastric pain Disposition: HOME SELF-CARE Condition: Stable Instructions (If sedation given, give patient instructions): Abdominal Pain (E D) Additional Instructions: Please follow-up with your primary care doctor in 2-4 days. I recommend a HIDA scan. Return to the emergency room for any new or worsening symptoms Prescriptions: Ondansetron Odt [Zofran Odt] 4 mg PO Q8HR PRN #15 tab PRN Reason: Nausea Is patient prescribed a controlled substance at d/c from ED?: No Referrals: Joi Amaya MD [Primary Care Provider] - 1-2 days [facility] [NON-STAFF] - 1-2 days Kavin Kaur MD [Medical Doctor] - 1-2 days Time of Disposition: 23:46
[2019-09-06 22:12] LABS: Basophils % (A) 0 %; Eosinophils # (A) 0.2 k/uL (0-0.7); Eosinophils % (A) 3 %; HCT 45.5 % (39.0-53.0); HGB 14.6 gm/dL (13.0-17.5); Lymphocytes # (A) 2.8 k/uL (1.0-4.8); Lymphocytes % (A) 36 %; MCH 29.5 pg (25.0-35.0); MCV 92.3 fL (80.0-100.0); Mean Platelet Volume 7.3; Monocytes # (A) 0.3 k/uL (0-1.0); Monocytes % (A) 4 %; Neutrophils # (A) 4.3 k/uL (1.3-7.7); Neutrophils % (A) 55 %; Platelet Count 244 k/uL (150-450); RBC 4.93 m/uL (4.30-5.90); RDW 12.5 % (11.5-15.5); WBC 7.7 k/uL (3.8-10.6)
[2019-09-06 22:21] LABS: ALT 30 U/L (4-49); AST 28 U/L (17-59); African American GFR (CKD) >90 (>60 ml/min/1.73 sqM); Albumin 4.3 g/dL (3.5-5.0); Alkaline Phosphatase 82 U/L (38-126); Anion Gap 4 mmol/L; Blood Urea Nitrogen 17 mg/dL (9-20); Calcium 9.2 mg/dL (8.4-10.2); Carbon Dioxide 32 mmol/L (22-30); Chloride 103 mmol/L (98-107); Glucose 96 mg/dL (74-99); Non-African American GFR(CKD) >90 (>60 ml/min/1.73 sqM); Potassium 4.2 mmol/L (3.5-5.1); Sodium 139 mmol/L (137-145); Total Bilirubin 0.3 mg/dL (0.2-1.3); Total Protein 7.1 g/dL (6.3-8.2)
[2019-09-06 22:53] VITALS: TEMP 98.9
--- NOTE | 2019-09-06 22:56 | US ---
EXAMINATION TYPE: US gallbladder DATE OF EXAM: 09/06/2019 COMPARISON: XR CLINICAL HISTORY: pain, vomiting. Pain and vomiting x 4 days. EXAM MEASUREMENTS: Liver Length: 13.8 cm Gallbladder Wall: 0.31 cm CBD: not seen Right Kidney: 11.8 x 5.5 x 4.9 cm Patient gassy. Pancreas: Limited, appears hyperechoic Liver: No abnormalities seen at this time. Limited visibility of left lobe. Gallbladder: Appears to be anechoic. Fold seen. Evidence for sonographic Gibbons's sign: No Right Kidney: No hydronephrosis or masses seen IMPRESSION: Negative exam. No gallstones or dilated ducts. No free fluid.
[2019-09-06 23:19] LABS: Appearance,Urine Clear (Clear); Bilirubin,Urine Negative (Negative); Blood,Urine Trace (Negative); Color,Urine Yellow; Glucose,Urine (UA) Negative (Negative); Ketones,Urine Negative (Negative); Leukocyte Esterase,Urine Negative (Negative); Mucus,Urine Rare /hpf; Nitrite,Urine Negative (Negative); PH, Urine 6.5 (5.0-8.0); Protein,Urine Negative (Negative); RBC,Urine 14 /hpf (0-5); Specific Gravity,Urine 1.023 (1.001-1.035); WBC,Urine 1 /hpf (0-5)
[2019-09-07 00:02] VITALS: BP 118/71; PULSE 65; RESP 18
== END 2019-09-07 00:31 | disposition home or self-care (01) ==
LOC: EC 20:19
DX: R10.13 Epigastric pain (principal); F17.200 Nicotine dependence, unspecified, uncomplicated; Z53.20 Procedure and treatment not carried out because of patient's decision for unspecified reasons; Z91.048 Other nonmedicinal substance allergy status
CPT/HCPCS: 99284; 96374; 96375; 36415; 93005; 80053; 83605; 83690; 85025; 81001; 76705; J2405; C9113

== ENCOUNTER 2021-03-06 15:41 | Emergency (ER) | payer BC ==
[2021-03-06 16:09] VITALS: TEMP 97.4
[2021-03-06] MEDS ORDERED: predniSONE 50 MG TAB PO STA (17:11)
[2021-03-06] MEDS ORDERED: KETOROLAC 15 MG/ML 1 ML VIAL IVP STA (17:11)
--- NOTE | 2021-03-06 17:13 | ED ---
Skin/Abscess/FB HPI - General Chief complaint: Skin/Abscess/Foreign Body Stated complaint: bee sting, allergic reaction Time Seen by Provider: 03/06/21 16:28 Source: family, EMS Mode of arrival: EMS Limitations: no limitations - History of Present Illness Initial comments: 35-year-old male patient presents to the emergency department today for evaluation of bee sting to the left upper arm. Patient states he was at work when he was stung by what he believes was a yellow jacket bee. States that his left forearm and hand went numb so he called 911. Patient was given Benadryl and Zofran in the ambulance. Patient currently reports no symptoms. States he has very mild discomfort around the sting site. Denies any lip swelling, tongue swelling, throat swelling, or trouble breathing. Denies abdominal pain. Denies any rash. - Related Data Previous Rx's Medication Instructions Recorded Albuterol Inhaler (Mhu) [Ventolin 1 - 2 puff INHALATION RT-Q6H PRN 11/18/18 Hfa Inhaler (Mhu)] #1 inhaler Azithromycin [Zithromax Z-pack (6 250 mg PO DIRECTED #6 tab 11/18/18 tabs)] methylPREDNISolone Dose Pack 4 mg PO DIRECTED #21 package 11/18/18 [Medrol Dose Pack] Ondansetron Odt [Zofran Odt] 4 mg PO Q8HR PRN #15 tab 09/06/19 predniSONE 50 mg PO DAILY #3 tab 03/06/21 Allergies Allergy/AdvReac Type Severity Reaction Status Date / Time adhesive tape Allergy Rash/Hives Verified 03/06/21 16:09 Review of Systems ROS Statement: Those systems with pertinent positive or pertinent negative responses have been documented in the HPI. ROS Other: All systems not noted in ROS Statement are negative. Past Medical History Past Medical History: Asthma History of Any Multi-Drug Resistant Organisms: None Reported Past Surgical History: Orthopedic Surgery Additional Past Surgical History / Comment(s): sinus Past Psychological History: Anxiety, Bipolar, Depression Past Alcohol Use History: Occasional Past Drug Use History: Marijuana General Exam Limitations: no limitations General appearance: alert, in no apparent distress, other (Physical well- developed, well-nourished adult male patient in no acute distress. Vital signs upon presentation are temperature 97.4F, pulse 65, respirations 18, blood pressure 104/70, pulse ox 97% on room air.) Respiratory exam: Present: normal lung sounds bilaterally. Absent: respiratory distress, wheezes, rales, rhonchi, stridor Cardiovascular Exam: Present: regular rate, normal rhythm, normal heart sounds. Absent: systolic murmur, diastolic murmur, rubs, gallop, clicks Extremities exam: Present: full ROM, normal capillary refill, other (There is a central sting site surrounded by mild swelling and erythema. Area is slightly tender. Skin is otherwise pink, warm, dry. Cap refill less than 3 seconds. Radial pulses 2+.). Absent: tenderness, pedal edema, joint swelling, calf tenderness Neurological exam: Present: alert, oriented X3, CN II-XII intact Psychiatric exam: Present: normal affect, normal mood Skin exam: Present: warm, dry, intact, normal color. Absent: rash Course Vital Signs 03/06/21 03/06/21 16:04 17:33 Temperature 97.4 F L Pulse Rate 65 58 L Respiratory 18 16 Rate Blood Pressure 104/70 113/80 O2 Sat by Pulse 97 98 Oximetry Medical Decision Making - Medical Decision Making 35-year-old male patient presented to the emergency department today for evaluation after being stung by a bee. Physical examination did reveal a small area of erythema with a central sting site to the left upper arm. Area is slightly tender. Initially was having some numbness to the arm states this has completely resolved. He is given a dose of Benadryl in the ambulance. Did give a dose of steroids here. He'll be discharged with a 3 day course of steroids. Instructed to follow-up with the primary care physician for recheck in 1-2 days. Return parameters were discussed in detail. He verbalizes understanding and agrees with this plan. I attending is Dr. Pearson. Disposition Clinical Impression: Bee sting, Arm paresthesia, left Disposition: HOME SELF-CARE Condition: Good Instructions (If sedation given, give patient instructions): Insect Bite or Sting (ED), Paresthesia (ED) Additional Instructions: Take medications as directed. Take Benadryl every 6 hours. Apply cool compresses over the site. Follow-up through primary care physician for recheck in 1-2 days. Return to the emergency department for any new, worsening, or concerning symptoms. Prescriptions: predniSONE 50 mg PO DAILY #3 tab Is patient prescribed a controlled substance at d/c from ED?: No Referrals: None,Stated [Primary Care Provider] - 1-2 days Time of Disposition: 17:13
[2021-03-06 17:34] VITALS: BP 113/80; PULSE 58; RESP 16
== END 2021-03-06 17:37 | disposition home or self-care (01) ==
LOC: EC 15:41
DX: T63.441A Toxic effect of venom of bees, accidental (unintentional), initial encounter (principal); J45.909 Unspecified asthma, uncomplicated; F31.9 Bipolar disorder, unspecified; F41.9 Anxiety disorder, unspecified; F12.90 Cannabis use, unspecified, uncomplicated; Z79.51 Long term (current) use of inhaled steroids
CPT/HCPCS: 99283; 96374; J1885; J7512

== ENCOUNTER 2024-10-18 15:25 | Emergency (ER) | payer OTHER ==
[2024-10-18] MEDS: ACET/COD 300 MG/30 MG STARTER PACK 6 TAB BTL PO STA (16:13)
[2024-10-18] MEDS: AMOXIC-POT CLAV 875-125MG 1 EACH TAB PO STA (16:13)
--- NOTE | 2024-10-18 16:15 | ED ---
General Adult HPI - General Chief complaint: Dental/Oral Stated complaint: Dental Pain Time Seen by Provider: 10/18/24 15:30 Source: patient, RN notes reviewed Mode of arrival: ambulatory Limitations: no limitations - History of Present Illness Initial comments: 39-year-old male presents to the emergency department for evaluation of dental pain. Patient reports that this been going on for months. He notes that over the past 2 to 3 days the pain is worsened. He notes multiple broken teeth. He was supposed to have them removed although he was quoted $11,000 to have the removed and he is unable to afford this. He denies any recent fever, chills. He does note that he took 2 doses of clindamycin that he had leftover at home. - Related Data Previous Rx's Medication Instructions Recorded Albuterol Inhaler [Ventolin Hfa 1 - 2 puff INHALATION RT-Q6H PRN 11/18/18 Inhaler] #1 inhaler Azithromycin [Zithromax Z-pack (6 250 mg PO DIRECTED #6 tab 11/18/18 tabs)] methylPREDNISolone Dose Pack 4 mg PO DIRECTED #21 package 11/18/18 [Medrol Dose Pack] Ondansetron Odt [Zofran Odt] 4 mg PO Q8HR PRN #15 tab 09/06/19 predniSONE 50 mg PO DAILY #3 tab 03/06/21 Amoxic-Pot Clav 875-125Mg 1 tab PO Q12HR 7 Days #14 tab 10/18/24 [Augmentin 875-125] Allergies Allergy/AdvReac Type Severity Reaction Status Date / Time adhesive tape Allergy Rash/Hives Verified 10/18/24 15:29 Review of Systems ROS Statement: Those systems with pertinent positive or pertinent negative responses have been documented in the HPI. ROS Other: All systems not noted in ROS Statement are negative. Past Medical History Past Medical History: Asthma History of Any Multi-Drug Resistant Organisms: None Reported Past Surgical History: Orthopedic Surgery Additional Past Surgical History / Comment(s): sinus Past Psychological History: Anxiety, Bipolar, Depression Smoking Status: Vaper Past Alcohol Use History: None Reported Past Drug Use History: Marijuana General Exam Limitations: no limitations General appearance: alert, in no apparent distress Head exam: Present: atraumatic, normocephalic, normal inspection Eye exam: Present: normal appearance, PERRL, EOMI. Absent: scleral icterus, conjunctival injection, periorbital swelling ENT exam: Present: other (Overall poor dentition with multiple caries and fractured teeth.) Respiratory exam: Present: normal lung sounds bilaterally. Absent: respiratory distress, wheezes, rales, rhonchi, stridor Cardiovascular Exam: Present: regular rate, normal rhythm, normal heart sounds. Absent: systolic murmur, diastolic murmur, rubs, gallop, clicks Neurological exam: Present: alert, oriented X3 Psychiatric exam: Present: normal affect, normal mood Skin exam: Present: warm, dry, intact, normal color. Absent: rash Course Vital Signs 10/18/24 10/18/24 15:27 16:35 Temperature 98.3 F 98.0 F Pulse Rate 86 80 Respiratory 18 20 Rate Blood Pressure 137/92 130/86 O2 Sat by Pulse 96 99 Oximetry Medical Decision Making - Medical Decision Making Was pt. sent in by a medical professional or institution (, PA, AERIAL PHOTOGRAPH INTERPRETER, urgent care, hospital, or [facility]...) When possible be specific @ -No Did you speak to anyone other than the patient for history (EMS, parent, family, police, friend...)? What history was obtained from this source @ -No Did you review nursing and triage notes (agree or disagree)? Why? @ -I reviewed and agree with nursing and triage notes Were old charts reviewed (outside hosp., previous admission, EMS record, old EKG, old radiological studies, urgent care reports/EKG's, [facility] records)? Report findings @ -No old charts were reviewed Differential Diagnosis (chest pain, altered mental status, abdominal pain women, abdominal pain men, vaginal bleeding, weakness, fever, dyspnea, syncope, headache, dizziness, GI bleed, back pain, seizure, CVA, palpatations, mental health, musculoskeletal)? @ -Dental infection, dental abscess, dental appliance issue, parotiditis, strep throat, this list is not all inclusive EKG interpreted by me (3pts min.). @ -None X-rays interpreted by me (1pt min.). @ -None done CT interpreted by me (1pt min.). @ -None done U/S interpreted by me (1pt. min.). @ -None done What testing was considered but not performed or refused? (CT, X-rays, U/S, labs)? Why? @ -None What meds were considered but not given or refused? Why? @ -None Did you discuss the management of the patient with other professionals (professionals i.e. , VON, AERIAL PHOTOGRAPH INTERPRETER, lab, RT, psych nurse, group social worker, mold sander, teacher, chief security and safety officer, assistant program manager)? Give summary @ -No Was smoking cessation discussed for >3mins.? @ -No Was critical care preformed (if so, how long)? @ -No Were there social determinants of health that impacted care today? How? (Homelessness, low income, unemployed, alcoholism, drug addiction, transportation, low edu. Level, literacy, decrease access to med. care, [facility], rehab)? @ -No Was there de-escalation of care discussed even if they declined (Discuss DNR or withdrawal of care, Hospice)? DNR status @ -No What co-morbidities impacted this encounter? (DM, HTN, Smoking, COPD, CAD, Cancer, CVA, ARF, Chemo, Hep., AIDS, mental health diagnosis, sleep apnea, morbid obesity)? @ -None Was patient admitted / discharged? Hospital course, mention meds given and route, prescriptions, significant lab abnormalities, going to OR and other pertinent info. @ -Discharge. Patient presented emergency department for evaluation of dental pain. On my evaluation patient has multiple dental caries and fractured teeth. There is no visible drainable abscess. He will be started on Augmentin. He is provided a starter pack for pain control. He will be discharged home advised follow-up to his dentist. He is understanding agreeable with this plan. Patient stable at time of discharge. Case discussed with Dr. Jackson. Undiagnosed new problem with uncertain prognosis? @ -No Drug Therapy requiring intensive monitoring for toxicity (Heparin, Nitro, Insulin, Cardizem)? @ -No Were any procedures done? @ -No Diagnosis/symptom? @ -Dental pain Acute, or Chronic, or Acute on Chronic? @ -Acute Uncomplicated (without systemic symptoms) or Complicated (systemic symptoms)? @ -Uncomplicated Side effects of treatment? @ -No Exacerbation, Progression, or Severe Exacerbation? @ -No Poses a threat to life or bodily function? How? (Chest pain, [place], [place], pneumonia, PE, COPD, DKA, ARF, appy, cholecystitis, CVA, Diverticulitis, Homicidal, Suicidal, threat to staff... and all critical care pts) @ -No Disposition Clinical Impression: Dental abscess Disposition: HOME SELF-CARE Condition: Stable Instructions (If sedation given, give patient instructions): Toothache (ED) Additional Instructions: Please steel pickler antibiotic and take to completion. Follow up with your dentist. Return to the emergency department for new or worsening symptoms. Prescriptions: Amoxic-Pot Clav 875-125Mg [Augmentin 875-125] 1 tab PO Q12HR 7 Days #14 tab Is patient prescribed a controlled substance at d/c from ED?: No Referrals: None,Stated [Primary Care Provider] - 1-2 days
[2024-10-18 16:36] VITALS: BP 130/86; PULSE 80; RESP 20; TEMP 98
== END 2024-10-18 16:36 | disposition home or self-care (01) ==
LOC: EC 15:25
DX: K04.7 Periapical abscess without sinus (principal); F17.290 Nicotine dependence, other tobacco product, uncomplicated; Z91.09 Other allergy status, other than to drugs and biological substances
CPT/HCPCS: 99282

== ENCOUNTER 2024-12-26 14:58 | Emergency (ER) | payer OTHER ==
[2024-12-26 15:07] VITALS: BP 118/81; PULSE 86; RESP 16; TEMP 97.7
--- NOTE | 2024-12-26 15:42 | ED ---
General Adult HPI - General Chief complaint: Upper Respiratory Infection Stated complaint: SOB Time Seen by Provider: 12/26/24 15:10 Source: patient, RN notes reviewed Mode of arrival: ambulatory Limitations: no limitations - History of Present Illness Initial comments: 39-year-old male with with a 30-year smoking history presents emergency department with cold and flulike symptoms over the past 6 days. Patient states that he has been experiencing intermittent body aches, chills, barking cough, rhinorrhea and congestion. Patient is presenting as he called off work today and states that he does not have health insurance. Denies fevers, reports chills. Denies abdominal pain, nausea, vomiting, chest pain or difficulty breathing. - Related Data Previous Rx's Medication Instructions Recorded Albuterol Inhaler [Ventolin Hfa 1 - 2 puff INHALATION RT-Q6H PRN 11/18/18 Inhaler] #1 inhaler Azithromycin [Zithromax Z-pack (6 250 mg PO DIRECTED #6 tab 11/18/18 tabs)] methylPREDNISolone Dose Pack 4 mg PO DIRECTED #21 package 11/18/18 [Medrol Dose Pack] Ondansetron Odt [Zofran Odt] 4 mg PO Q8HR PRN #15 tab 09/06/19 predniSONE 50 mg PO DAILY #3 tab 03/06/21 Amoxic-Pot Clav 875-125Mg 1 tab PO Q12HR 7 Days #14 tab 10/18/24 [Augmentin 875-125] Albuterol Inhaler [Ventolin Hfa 1 - 2 puff INHALATION Q6H PRN #1 12/26/24 Inhaler] each Azithromycin [Zithromax Z Pack] 1 tab PO DIRECTED #6 tab 12/26/24 Allergies Allergy/AdvReac Type Severity Reaction Status Date / Time adhesive tape Allergy Rash/Hives Verified 10/18/24 15:29 Review of Systems ROS Statement: Those systems with pertinent positive or pertinent negative responses have been documented in the HPI. ROS Other: All systems not noted in ROS Statement are negative. Past Medical History Past Medical History: Asthma History of Any Multi-Drug Resistant Organisms: None Reported Past Surgical History: Orthopedic Surgery Additional Past Surgical History / Comment(s): sinus Past Psychological History: Anxiety, Bipolar, Depression Smoking Status: Vaper Past Alcohol Use History: None Reported Past Drug Use History: Marijuana General Exam Limitations: no limitations General appearance: alert, in no apparent distress ENT exam: Present: normal exam, mucous membranes moist Neck exam: Present: normal inspection. Absent: tenderness, meningismus, lymphadenopathy Respiratory exam: Present: wheezes, rales. Absent: normal lung sounds bilateral ly, respiratory distress Cardiovascular Exam: Present: regular rate, normal rhythm, normal heart sounds. Absent: systolic murmur, diastolic murmur, rubs, gallop, clicks GI/Abdominal exam: Present: soft, normal bowel sounds. Absent: distended, tenderness, guarding, rebound, rigid Extremities exam: Present: normal inspection, full ROM, normal capillary refill. Absent: tenderness, pedal edema, joint swelling, calf tenderness Back exam: Present: normal inspection Skin exam: Present: warm, dry, intact, normal color. Absent: rash Course Vital Signs 12/26/24 15:06 Temperature 97.7 F Pulse Rate 86 Respiratory 16 Rate Blood Pressure 118/81 O2 Sat by Pulse 96 Oximetry Medical Decision Making - Medical Decision Making Was pt. sent in by a medical professional or institution ([facility], DIRECTOR OF CASEWORK, urgent care, hospital, or fdc...) When possible be specific @ -No Did you speak to anyone other than the patient for history (EMS, parent, family, police, friend...)? What history was obtained from this source @ -No Did you review nursing and triage notes (agree or disagree)? Why? @ -I reviewed and agree with nursing and triage notes Were old charts reviewed (outside hosp., previous admission, EMS record, old EKG, old radiological studies, urgent care reports/EKG's, fdc records)? Report findings @ -No old charts were reviewed Differential Diagnosis (chest pain, altered mental status, abdominal pain women, abdominal pain men, vaginal bleeding, weakness, fever, dyspnea, syncope, headache, dizziness, GI bleed, back pain, seizure, CVA, palpatations, mental health, musculoskeletal)? @ -COVID 19, RSV, influenza, pneumonia, acute bronchitis, URI, this list is not all inclusive EKG interpreted by me (3pts min.). @ -None X-rays interpreted by me (1pt min.). @ -Chest x-ray completed reveals no acute cardiopulmonary process CT interpreted by me (1pt min.). @ -None done U/S interpreted by me (1pt. min.). @ -None done What testing was considered but not performed or refused? (CT, X-rays, U/S, labs)? Why? @ -None What meds were considered but not given or refused? Why? @ -None Did you discuss the management of the patient with other professionals (professionals i.e. , PA, DIRECTOR OF CASEWORK, lab, RT, psych nurse, social service agency director, ice skating teacher, teacher, bank compliance officer, therapeutic case manager)? Give summary @ -No Was smoking cessation discussed for >3mins.? @ -No Was critical care preformed (if so, how long)? @ -No Were there social determinants of health that impacted care today? How? (Homelessness, low income, unemployed, alcoholism, drug addiction, transportation, low edu. Level, literacy, decrease access to med. care, senior care, rehab)? @ -No Was there de-escalation of care discussed even if they declined (Discuss DNR or withdrawal of care, Hospice)? DNR status @ -No What co-morbidities impacted this encounter? (DM, HTN, Smoking, COPD, CAD, Cancer, CVA, ARF, Chemo, Hep., AIDS, mental health diagnosis, sleep apnea, morbid obesity)? @ -None Was patient admitted / discharged? Hospital course, mention meds given and route, prescriptions, significant lab abnormalities, going to OR and other pertinent info. @ -Discharge. 39-year-old male presents emergency room with complaints of URI symptoms over the past week. Overall patient is well-appearing and initial vitals are stable. Patient has imitations lung sounds and auscultation with wheezes and rhonchi bilaterally. Chest x-ray is negative. Viral testing is negative. With concern for tracheobronchitis patient was treated with outpatient azithromycin and albuterol inhaler. Return parameters discussed. Case discussed with Dr. Arrington Undiagnosed new problem with uncertain prognosis? @ -No Drug Therapy requiring intensive monitoring for toxicity (Heparin, Nitro, Insulin, Cardizem)? @ -No Were any procedures done? @ -No Diagnosis/symptom? @ -Tracheobronchitis Acute, or Chronic, or Acute on Chronic? @ -Acute Uncomplicated (without systemic symptoms) or Complicated (systemic symptoms)? @ -Uncomplicated Side effects of treatment? @ -No Exacerbation, Progression, or Severe Exacerbation? @ -No Poses a threat to life or bodily function? How? (Chest pain, [place], [place], pneumonia, PE, COPD, DKA, ARF, appy, cholecystitis, CVA, Diverticulitis, Homicidal, Suicidal, threat to staff... and all critical care pts) @ -No - Lab Data Lab Results 12/26/24 Range/Units 15:21 Influenza Type A (PCR) Not Detected (Not Detectd) Influenza Type B (PCR) Not Detected (Not Detectd) RSV (PCR) Not Detected (Not Detectd) SARS-CoV-2 (PCR) Not Detected (Not Detectd) Disposition Clinical Impression: Tracheobronchitis Disposition: HOME SELF-CARE Condition: Stable Instructions (If sedation given, give patient instructions): Acute Bronchitis (ED) Additional Instructions: Please return to the Emergency Department if symptoms worsen or any other concerns. Prescriptions: Albuterol Inhaler [Ventolin Hfa Inhaler] 1 - 2 puff INHALATION Q6H PRN #1 each PRN Reason: Shortness Of Breath Azithromycin [Zithromax Z Pack] 1 tab PO DIRECTED #6 tab Is patient prescribed a controlled substance at d/c from ED?: No Referrals: None,Stated [Primary Care Provider] - 1-2 days Time of Disposition: 17:10
--- NOTE | 2024-12-26 15:47 | XR ---
EXAMINATION TYPE: XR chest 2V DATE OF EXAM: 12/26/2024 3:32 PM COMPARISON: 09/02/2024 CLINICAL INDICATION: Male, 39 years old with history of cough congestion sob, TECHNIQUE: XR chest 2V view(s) obtained. FINDINGS: The heart size is normal. The pulmonary vasculature is normal. The lungs are clear. IMPRESSION: 1. No acute pulmonary process. [facility], , 12/26/2024 3:44 PM
[2024-12-26 16:10] LABS: Influenza A Not Detected (Not Detectd); Influenza B Not Detected (Not Detectd); RSV Not Detected (Not Detectd)
== END 2024-12-26 17:32 | disposition home or self-care (01) ==
LOC: EC 14:58
DX: J40 Bronchitis, not specified as acute or chronic (principal); F17.290 Nicotine dependence, other tobacco product, uncomplicated; Z91.09 Other allergy status, other than to drugs and biological substances
CPT/HCPCS: 71046; 87636; 99284

== ENCOUNTER 2025-01-23 00:44 | Emergency (ER) | payer SELFPAY ==
--- NOTE | 2025-01-23 01:41 | XR ---
EXAM: XR Chest, 2 Views CLINICAL HISTORY: ITS.REASON XR Reason: SOB TECHNIQUE: Frontal and lateral views of the chest. COMPARISON: No relevant prior studies available. FINDINGS: Lungs: Unremarkable. No consolidation. Pleural space: Unremarkable. No pneumothorax. Heart: Unremarkable. No cardiomegaly. Mediastinum: Unremarkable. Bones/joints: Unremarkable. IMPRESSION: No consolidation.
[2025-01-23 01:42] LABS: RSV Not Detected (Not Detectd)
--- NOTE | 2025-01-23 01:56 | ED ---
General Adult HPI - General Chief complaint: Shortness of Breath Stated complaint: difficulty breathing Time Seen by Provider: 01/23/25 01:00 Source: patient, RN notes reviewed Mode of arrival: ambulatory Limitations: no limitations - History of Present Illness Initial comments: 39-year-old male presents emergency department complaint of cough congestion headaches. Patient states last several days. Patient states that he has had sore throat, productive cough. Patient dates he has a history of asthma states he is a daily smoker. Patient denies any ear pain denies any abdominal pain. Patient states he has thick sputum. Patient denies any [id number] cough or cold meds. - Related Data Previous Rx's Medication Instructions Recorded Albuterol Inhaler [Ventolin Hfa 1 - 2 puff INHALATION RT-Q6H PRN 11/18/18 Inhaler] #1 inhaler Azithromycin [Zithromax Z-pack (6 250 mg PO DIRECTED #6 tab 11/18/18 tabs)] methylPREDNISolone Dose Pack 4 mg PO DIRECTED #21 package 11/18/18 [Medrol Dose Pack] Ondansetron Odt [Zofran Odt] 4 mg PO Q8HR PRN #15 tab 09/06/19 predniSONE 50 mg PO DAILY #3 tab 03/06/21 Amoxic-Pot Clav 875-125Mg 1 tab PO Q12HR 7 Days #14 tab 10/18/24 [Augmentin 875-125] Albuterol Inhaler [Ventolin Hfa 1 - 2 puff INHALATION Q6H PRN #1 12/26/24 Inhaler] each Azithromycin [Zithromax Z Pack] 1 tab PO DIRECTED #6 tab 12/26/24 Amoxic-Pot Clav 875-125Mg 1 tab PO Q12HR #20 tab 01/23/25 [Augmentin 875-125] predniSONE 50 mg PO DAILY #5 tab 01/23/25 Allergies Allergy/AdvReac Type Severity Reaction Status Date / Time adhesive tape Allergy Rash/Hives Verified 10/18/24 15:29 Review of Systems ROS Statement: Those systems with pertinent positive or pertinent negative responses have been documented in the HPI. ROS Other: All systems not noted in ROS Statement are negative. Past Medical History Past Medical History: Asthma History of Any Multi-Drug Resistant Organisms: None Reported Past Surgical History: Orthopedic Surgery Additional Past Surgical History / Comment(s): sinus Past Psychological History: Anxiety, Bipolar, Depression Smoking Status: Former smoker Past Alcohol Use History: None Reported Past Drug Use History: Marijuana General Exam Limitations: no limitations General appearance: alert, in no apparent distress Head exam: Present: atraumatic, normocephalic, normal inspection ENT exam: Present: normal exam, mucous membranes moist, TM's normal bilaterally Neck exam: Present: normal inspection. Absent: tenderness, meningismus, lymphadenopathy Respiratory exam: Present: wheezes. Absent: normal lung sounds bilaterally, respiratory distress, rales, rhonchi, stridor Cardiovascular Exam: Present: normal rhythm, tachycardia, normal heart sounds. Absent: systolic murmur, diastolic murmur, rubs, gallop, clicks Course Vital Signs 01/23/25 01/23/25 00:48 01:26 Temperature 100.3 F H Pulse Rate 110 H Respiratory 18 24 Rate Blood Pressure 125/87 O2 Sat by Pulse 99 Oximetry Medical Decision Making - Medical Decision Making Was pt. sent in by a medical professional or institution (, PA, WIND FARM SUPPORT SPECIALIST, urgent care, hospital, or correction...) When possible be specific @ -No Did you speak to anyone other than the patient for history (EMS, parent, family, police, friend...)? What history was obtained from this source @ -No Did you review nursing and triage notes (agree or disagree)? Why? @ -I reviewed and agree with nursing and triage notes Were old charts reviewed (outside hosp., previous admission, EMS record, old EKG, old radiological studies, urgent care reports/EKG's, correction records)? Report findings @ -No old charts were reviewed Differential Diagnosis (chest pain, altered mental status, abdominal pain women, abdominal pain men, vaginal bleeding, weakness, fever, dyspnea, syncope, headache, dizziness, GI bleed, back pain, seizure, CVA, palpatations, mental health, musculoskeletal)? @ -COVID 19, RSV, influenza, pneumonia, acute bronchitis, URI, this list is not all inclusive EKG interpreted by me (3pts min.). @ -none X-rays interpreted by me (1pt min.). @ -[Chest x-ray shows no acute cardiopulmonary process. CT interpreted by me (1pt min.). @ -None done U/S interpreted by me (1pt. min.). @ -None done What testing was considered but not performed or refused? (CT, X-rays, U/S, labs)? Why? @ -None What meds were considered but not given or refused? Why? @ -None Did you discuss the management of the patient with other professionals (professionals i.e. , PA, WIND FARM SUPPORT SPECIALIST, lab, RT, psych nurse, oncology social work, glass wool blanket machine feeder, teacher, county records management officer, pillowcase turner)? Give summary @ -No Was smoking cessation discussed for >3mins.? @ -No Was critical care preformed (if so, how long)? @ -No Were there social determinants of health that impacted care today? How? (Homelessness, low income, unemployed, alcoholism, drug addiction, transportation, low edu. Level, literacy, decrease access to med. care, halfway, rehab)? @ -No Was there de-escalation of care discussed even if they declined (Discuss DNR or withdrawal of care, Hospice)? DNR status @ -No What co-morbidities impacted this encounter? (DM, HTN, Smoking, COPD, CAD, Cancer, CVA, ARF, Chemo, Hep., AIDS, mental health diagnosis, sleep apnea, morbid obesity)? @ -None Was patient admitted / discharged? Hospital course, mention meds given and route, prescriptions, significant lab abnormalities, going to OR and other pertinent info. @ -Discharge patient presented for fever cough congestion. Patient Cepheid, strep negative chest x-ray does not show any significant consolidation. Patient does have notable wheezing was given DuoNeb treatment. Patient has acute tracheobronchitis with bronchospasm. Patient discharged on antibiotics, steroids return for as discussed. Undiagnosed new problem with uncertain prognosis? @ -No Drug Therapy requiring intensive monitoring for toxicity (Heparin, Nitro, Insul in, Cardizem)? @ -No Were any procedures done? @ -No Diagnosis/symptom? @ -Acute tracheobronchitis with bronchospasm Acute, or Chronic, or Acute on Chronic? @ -Acute Uncomplicated (without systemic symptoms) or Complicated (systemic symptoms)? @ -Complicated Side effects of treatment? @ -No Exacerbation, Progression, or Severe Exacerbation? @ -No Poses a threat to life or bodily function? How? (Chest pain, [place], [place], pneumonia, PE, COPD, DKA, ARF, appy, cholecystitis, CVA, Diverticulitis, Homicidal, Suicidal, threat to staff... and all critical care pts) @ -No - Lab Data Lab Results 01/23/25 01/23/25 Range/Units 00:52 00:52 Influenza Type A (PCR) Not Detected (Not Detectd) Influenza Type B (PCR) Not Detected (Not Detectd) RSV (PCR) Not Detected (Not Detectd) SARS-CoV-2 (PCR) Not Detected (Not Detectd) Group A Strep (PCR) NOT DETECTED (Not Detectd) Disposition Clinical Impression: Bronchospasm, Acute tracheobronchitis Disposition: HOME SELF-CARE Condition: Stable Instructions (If sedation given, give patient instructions): Acute Bronchitis (ED) Additional Instructions: Please return to the Emergency Department if symptoms worsen or any other concerns. Prescriptions: Amoxic-Pot Clav 875-125Mg [Augmentin 875-125] 1 tab PO Q12HR #20 tab predniSONE 50 mg PO DAILY #5 tab Is patient prescribed a controlled substance at d/c from ED?: No Referrals: None,Stated [Primary Care Provider] - 1-2 days Time of Disposition: 01:58
[2025-01-23] MEDS: IPRATROPIUM-ALBUTEROL 3 ML NEB INHALATION STA (02:13)
[2025-01-23 02:45] VITALS: BP 139/84; PULSE 98; RESP 20; TEMP 98.4
== END 2025-01-23 02:45 | disposition home or self-care (01) ==
LOC: EC 00:44
DX: J98.01 Acute bronchospasm (principal); J40 Bronchitis, not specified as acute or chronic; Z87.891 Personal history of nicotine dependence; Z91.048 Other nonmedicinal substance allergy status
CPT/HCPCS: 71046; 87636; 87651; 94640; 99285